=== PATIENT | female | born 1980 | race Caucasian/White ===

== ENCOUNTER 2023-02-22 00:17 | Day surgery (SDC) | payer OTHER, SELFPAY ==
[2023-02-18 09:21] VITALS: BMI 26.2
--- NOTE | 2023-02-18 09:24 | PC.NURSE ---
Report to the Outpatient Waiting Room, entrance under the green pavilion located off [facility], at time 0600 on date 02/22/23. Planned Procedure Time: 0730. Time changes happen often and if your time is changed the preop area will call you the afternoon before. - You and your visitor will be asked to self-screen and do not enter if you have any COVID symptoms. - A mask is optional within the hospital at this time. Patients may have clear liquids (water, carbonated beverages, clear teas, apple juice) until 3 hours prior to surgery with a maximum of 20 ounces. - No food from midnight until time of surgery Take the following medications with a SIP of water the morning of surgery: NONE DO NOT STOP ANY OF YOUR OTHER PRESCRIPTION MEDICATIONS PRIOR TO SURGERY ?EXCEPT THE FOLLOWING Medications to discontinue per physician: VITAMINS/SUPPLEMENTS Date to take last dose: 02/18/23 Please no make-up, nail welsh, hairspray, perfume, deodorant, or body powder the day of surgery. No jewelry (including any body piercings) or valuables the day of surgery, leave them at home. Please take a shower or bath the night before, or the morning of, surgery with an antibacterial soap. Wear comfortable, loose fitting clothing. - Jewelry must be removed prior to entering the operating room. Rings and piercings that are not removed may be cut off. - The hospital will not accept responsibility for valuables. - Please leave all valuables, including medications, at home the day of surgery. If you are going home after surgery, a licensed sales route driver must drive you home. - NO public transportation without another adult if you receive anesthesia. - We recommend that an adult stay with you for 24 hours following discharge. - We also recommend that you do not drive, make important decision, drink alcoholic beverages, or take any drugs that were not prescribed by your health care provider for at least 24 hours after your discharge time. Follow any additional instructions given to you from your surgeon. If you or anyone in your household have experienced Covid symptoms in the past week, please notify your surgeon or the nurse liaison at the phone number below for possible testing. Telephone instructions given to PT - KATHIE ROBERTS and asked if any additional questions and then verbalized understanding. Patient advised to call surgeon office or pre surgery nurse liaison [phone] if any additional questions.
[2023-02-22] VITALS (13 sets, daily range): BP systolic 98–123; BP diastolic 55–72; PULSE 65–86; RESP 12–20; TEMP 36.5–37.4; O2SAT 93–100
--- NOTE | 2023-02-22 06:08 | ECG_ITS ---
Measurements Intervals [place] Rate: 64 P: 15 WV: 169 QRS: 49 QRSD: 87 T: 25 QT: 410 QTc: 426 Interpretive Statements SINUS RHYTHM NORMAL ELECTROCARDIOGRAM NO PREVIOUS ECG AVAILABLE FOR COMPARISON Electronically Signed On 02-22-2023 14:43:58 CDT by Newton Severino M.D.
[2023-02-22] MEDS: LACTATED RINGERS 1,000 ML 30 ML IV CONT ×3 (06:30→15:40)
[2023-02-22 06:36] LABS: Urine Cotinine NEGATIVE
[2023-02-22 06:44] LABS: Hematocrit 42.3 % (37.0-47.0); Hemoglobin 13.8 g/dL (12.0-15.0)
--- NOTE | 2023-02-22 06:48 | WPDANESEPPF ---
Anes - Initial Pre Proc Eval Procedure: Operation Date: 02/22/23 07:30 Proposed Procedures p Abdominoplasty with Liposuction, - Dharmesh Momin MD s Bilateral Breast Augmentation - Dharmesh Momin MD s Bilateral Breast Mastopexy with GalaFlex - Dharmesh Momin MD s Liposuction of Bilateral Lateral Breasts - Dharmesh Momin MD Date/Time: 02/22/23 06:48 Surgeon: Dharmesh Momin MD Pre Op Diagnosis: skin laxity,micromastia,breast ptosis Patient Data Age: 43 Gender: F Height: 1.57 m Weight: 64.9 kg Allergies Allergy/AdvReac Type Severity Reaction Status Date / Time No Known Allergies Allergy Verified 02/18/23 09:19 Home Medications Medication Instructions Recorded Confirmed Type coQ10 (ubiquinol) 200 mg capsule 200 mg PO DAILY 02/18/23 02/22/23 History multivitamin 1 tablet PO DAILY 02/18/23 02/22/23 History rosuvastatin 10 mg tablet 10 mg PO HS 02/18/23 02/22/23 History trazodone 150 mg tablet 150 mg PO HS 02/18/23 02/22/23 History Laboratory Tests 02/22/23 02/22/23 06:10 06:29 Hgb 13.8 g/dL (12.0-15.0) Hct 42.3 % (37.0-47.0) Cotinine Negative Patient hx anesthesia problems: none Family hx anesthesia problems: none Results Review: All pre-operative results and documents have been reviewed as part of the pre-operative evaluation. [facility] Past Medical History Medical History (Updated 02/22/23 @ 06:48 by Tamir Ann DO) Hyperlipidemia Surgical History Surgical History (Updated 02/22/23 @ 06:48 by Tamir Ann DO) History of hysterectomy Social History Social History Smoking status: Never smoker Alcohol intake: current Drinks per week: 3 Substance use: never Substance use type: does not use Living arrangements: with family Spiritual care concerns: No Anes - Eval Final PreProcedure Day of Procedure 02/22/23 06:48 Patient weight: overweight Heart: regular rate and rhythm Lungs: clear to auscultation Airway: Mallampati scale class II Neurological: alert and oriented Last oral intake: >/= 8 hours ASA classification: II Emergent: no Anesthetic plan: proceed Anesthesia type and monitoring: general ETT and standard monitoring Results Review: All pre-operative results and documents have been reviewed as part of the pre-operative evaluation. Informed Consent: The patient's anesthetic plan and its attendant risks and benefits were discussed with the patient/family/POA. Questions were solicited and answers provided to the satisfaction of the patient/family/POA.
[2023-02-22] MEDS: SCOPOLAMINE 1.5 MG PATCH TRANSDERM (07:15)
--- NOTE | 2023-02-22 07:30 | WPDHPUPDATE1 ---
History and Physical Update Update Date/Time: 02/22/23 07:30 History and Physical has been reviewed, including an updated exam of the patient. There are NO changes in the patient's condition. Risks, benefits, and alternatives have been discussed and questions answered. Patient agrees to proceed with procedure.
--- NOTE | 2023-02-22 07:31 | W.PM.PROC2 ---
Procedure Note - Detailed Date of Procedure 02/22/23 Pre-op Diagnosis skin laxity,micromastia,breast ptosis Post-op Diagnosis Same Procedure Performed 1. Bilateral augmentation mastopexy with Galaflex 2. Bilateral breast suction lipectomy (superior / lateral breast / chest wall) 3. Progressive tension abdominoplasty with suction lipectomy. Surgeon Dharmesh Momin MD Anesthesia General Findings Bilateral Ale Dubon SoftTouch 520 cc Right - REF# SSM-520 SN [id number] Left - REF# SSM-520 SN [id number] Galalfex Ref# [id number] Lot# [id number] Lipoaspirate breast: 20 cc Tissue removed: 1216 grams Lipoaspirate abdomen: 1150 cc Description of Procedure They are here today for the above. Previously and again today the risks, benefits, alternatives were discussed in extensive detail. I wanted them to be very realistic about the risks involved as well as expectations. She understand her previous procedures increase her risk of complications which was outlined clearly. We discussed aftercare and what to monitor for. I was very upfront about the risks of wound breakdown leading to loss of skin, open wounds, and need for additional procedures with permanent abdominal deformity. We discussed DVT/PE risks and management. Made sure answered all of their questions to their satisfaction today and consent was obtained. They were marked in the preoperative holding area with their verification. The patient was taken to the operating room and Anesthesia was provided by anesthesiology. A Cary catheter was started. Placed prone with care taken to protect from injury and they were prepped and draped in a standard sterile fashion. A surgical time-out was taken. Back / flanks Stab incisions were made and tumescent solution infiltrated. Once adequate time was allowed for hemostasis a 5mm basket cannula was utilized to complete suction lipectomy based on S.A.F.E. technique in multiple planes and passes. Suction lipectomy continued to result based on pre-operative planning, intra-operative observation, and rolling pinch test which were in full agreement. Breast She was then placed supine with care taken to protect from injury. Re-prepped and draped in a standard sterile fashion. 1% lidocaine and 0.25% Marcaine with epinephrine was used anesthetize as a field block. Tegaderm nipple [place] were placed. A 15 blade used to make an incision just superior to the inframammary fold leaving a cusp of de-epithelized tissue at the t junction. Dissection was continued until the chest wall as identified. I incised the pectoralis major along its inferior border and completely released the inferior border leaving the medial border intact. I created a subpectoral pocket in the appropriate dimensions based on our preoperative planning for the implant. I then copiously irrigated with saline solution and verified a strict hemostasis. Next the use a triple antibiotic and Betadine containing solution to irrigate the pocket. I washed my gloves with the triple antibiotic and Betadine solution. We washed the implant immediately upon opening it with this solution and only opened it when we needed it. I used implant funnel and no-touch technique. The implant was introduced into the pocket using the funnel. Having verified positioning of the implant this was closed using 2-0 PDS. I tailor tacked the breast into position. Placed her in a sitting position. Verified the nipple-areolar location based on preoperative planning as well as intraoperative observations and measurements in full agreement. Suction lipectomy with a 3mm multihole cannula was utilized for the liposuction with care taken to protect the implant with no evidence of injury to the implant or other structures. She was placed supine. I de-epithelialized the pedicle. I then removed the inferior central portion of the breast need making sure the implant was well protected. I elevated medial and lateral ti
[2023-02-22] MEDS: ceFAZolin 2 GM/D5W 50 ML 2 GM/50 ML BAG IVPB (07:39)
[2023-02-22] MEDS: TRANEXAMIC ACID 1,000MG/ISO100 1,000 MG/100 ML BAG 200 MG IVPB (07:54)
[2023-02-22] MEDS: NACL 0.9% IRRIG POUR BOTTLE 900 ML, GENTAMICIN SULFATE INJ 160 MG, ceFAZolin 2 GM, POVI... IRRIGATION (09:30)
[2023-02-22] MEDS: BUPIVACAINE/EPINEPHRINE 0.5% 30 ML VIAL 60 ML INFILTRATE (09:50)
[2023-02-22] MEDS: LIDO 1%/EPINEPHRINE 1:100,000 20 ML VIAL 40 ML INFILTRATE (09:50)
[2023-02-22] MEDS: BUPivacaine HCL 0.25% PF 30 ML VIAL INFILTRATE (09:50)
[2023-02-22] MEDS: ceFAZolin SODIUM 1 GM VIAL IV PUSH (12:57)
[2023-02-22] MEDS: LACTATED RINGERS IRRIG 1,000 ML, LIDOCAINE HCL 1% LOCAL INJ 50 ML, EPINEPHrine HCL INJ ... INFILTRATE (12:58)
[2023-02-22] MEDS: fentaNYL CITRATE INJ (*CRX) 100 MCG/2 ML VIAL 25 MCG IV PUSH ×5 (14:51→15:38)
[2023-02-22] MEDS: ONDANSETRON INJ 4 MG/2 ML VIAL IV PUSH ×2 (15:07→17:38)
[2023-02-22] MEDS: diphenhydrAMINE HCl INJ 50 MG/ML VIAL 25 MG IV PUSH (15:36)
--- NOTE | 2023-02-22 15:40 | SUR.PHASEI ---
MD Momin notified of small amount of drainage around drain insertion site (RLQ). New orders to add xerform gauze and replace dressing. Cyndi (scrub RN) at bedside to do so. New dressing clean dry and intact.
--- NOTE | 2023-02-22 16:37 | PC.NURSE ---
This patient, Natalee Ulloa, was received from PACU via bed on 02/22/23 at 1637. Patient/family oriented to unit policies and routines.
[2023-02-22] MEDS: MORPHINE SULFATE (*CRX) 2 MG/ML INJ IV PUSH (17:09)
[2023-02-22] MEDS: LACTATED RINGERS 1,000 ML 125 ML IV CONT (17:10)
[2023-02-22] MEDS: KETOROLAC 10 MG TABLET PO (18:23)
[2023-02-22] MEDS: carisoprodoL (*CRX) 350 MG TABLET PO (19:18)
[2023-02-22] MEDS: ENOXAPARIN 40 MG/0.4 ML SYRINGE SUB-Q (19:19)
[2023-02-22] MEDS: DOCUSATE SODIUM 100 MG CAPSULE PO (19:19)
[2023-02-22] MEDS: diazePAM (*CRX) 5 MG TABLET PO (19:20)
[2023-02-23] MEDS: oxyCODONE/ACETAMINOPHEN (*CRX) 5-325 MG TABLET PO ×2 (00:20→06:55)
[2023-02-23] MEDS: carisoprodoL (*CRX) 350 MG TABLET PO ×2 (03:09→09:27)
[2023-02-23] MEDS: KETOROLAC 10 MG TABLET PO ×2 (03:09→09:30)
[2023-02-23 05:00] VITALS: BP 101/52; PULSE 88; RESP 16; TEMP 37.5; O2SAT 97
[2023-02-23 06:55] VITALS: BP 115/76; PULSE 66; RESP 16; TEMP 36.4; O2SAT 100
--- NOTE | 2023-02-23 07:19 | WPDPN ---
Progress Note: A&P Assessment and Plan (1) Breast ptosis: Code(s): N64.81 - Ptosis of breast Status: Acute Assessment and Plan: Doing well after bilateral augmentation mastopexy with lateral breast/chest was suction lipectomy and progressive tension abdominoplasty with suction lipectomy. Will discharge home. Follow-up in 1 week. Today we had a lengthy discussion about the care. What to monitor for. Activity limitations. This was a lengthy open ended conversation answering all her questions. She knows what is an emergency and when to proceed to ER/dial 911. Call with all other questions or concerns. Will see her back. (2) Micromastia: Code(s): N64.82 - Hypoplasia of breast Status: Acute (3) Skin laxity: Code(s): L57.4 - Cutis laxa senilis Status: Acute (4) Localized adiposity: Code(s): E65 - Localized adiposity Status: Acute Subjective Date/time seen: 02/23/23 07:19 Interval history: Doing well after bilateral augmentation mastopexy with lateral breast/chest was suction lipectomy and progressive tension abdominoplasty with suction lipectomy. Ambulating. Pain controlled. No nausea / vomiting. No fevers / chills. No shortness of breast. No chest pain. No calf tenderness. Review of Systems Review of Systems: All systems reviewed & are unremarkable except as noted in HPI and below Exam Narrative: Alert & Oriented NOD Respiratory unlabored Breast is healing well. No signs of infection. No hematoma. No seroma. Good color and capillary refill. Abdomen is healing well. No signs of infection. No hematoma. No seroma. Good color and capillary refill. No calf tenderness. Negative Bryan's Objective Data Vital Signs Vital Signs: Vital Signs - 24 hr 02/22/23 14:37 02/22/23 14:45 02/22/23 14:50 Temperature 36.7 C Pulse Rate 80 75 Respiratory Rate 13 13 Blood Pressure 115/62 111/62 Pulse Oximetry 100 100 95 Oxygen Delivery Simple Face Mask Simple Face Mask Room Air Oxygen Flow Rate 10 10 02/22/23 15:00 02/22/23 15:15 02/22/23 15:30 Temperature Pulse Rate 77 72 80 Respiratory Rate 17 12 13 Blood Pressure 112/59 L 118/65 120/67 Pulse Oximetry 94 93 93 Oxygen Delivery Room Air Room Air Room Air Oxygen Flow Rate 02/22/23 15:45 02/22/23 16:00 02/22/23 16:15 Temperature Pulse Rate 77 86 84 Respiratory Rate 12 20 16 Blood Pressure 112/63 114/72 120/67 Pulse Oximetry 94 98 97 Oxygen Delivery Room Air Room Air Room Air Oxygen Flow Rate 02/22/23 16:28 02/22/23 16:45 02/22/23 19:30 Temperature 36.5 C 36.7 C Pulse Rate 82 78 82 Respiratory Rate 18 18 16 Blood Pressure 123/56 L 118/71 98/55 L Pulse Oximetry 95 94 97 Oxygen Delivery Room Air Oxygen Flow Rate 02/23/23 05:00 Temperature 37.5 C Pulse Rate 88 Respiratory Rate 16 Blood Pressure 101/52 L Pulse Oximetry 97 Oxygen Delivery Oxygen Flow Rate Intake/Output Intake/Output: Intake & Output 02/20/23 02/21/23 02/22/23 02/23/23 23:59 23:59 23:59 23:59 Intake Total 1450 2700 Output Total 540 1875 Balance 910 825 Meds/Results Medications: Active Medications Generic Name Dose Route Start Last Admin Trade Name Freq PRN Reason Stop Dose Admin Carisoprodol 350 mg 02/22/23 18:00 02/23/23 03:09 Carisoprodol (*Crx) 350 Mg Tablet PO 350 mg Q6HR HOMERO Administration Diazepam 5 mg 02/22/23 14:23 02/22/23 19:20 Diazepam (*Crx) 5 Mg Tablet PO 5 mg TID PRN Administration Anxiety Docusate Sodium 100 mg 02/22/23 21:00 02/22/23 19:19 Docusate Sodium 100 Mg Capsule PO 100 mg Q12HR HOMERO Administration Enoxaparin Sodium 40 mg 02/22/23 20:00 02/22/23 19:19 Enoxaparin 40 Mg/0.4 Ml Syringe SUB-Q 40 mg DAILY HOMERO Administration Ketorolac Tromethamine 10 mg 02/22/23 18:00 02/23/23 03:09 Ketorolac 10 Mg Tablet PO 02/24/23 12:01 10 mg Q6HR HOMERO Administration Morphine Sulfate 2 mg
--- NOTE | 2023-02-23 07:23 | P.DS_ITS ---
DS: Admitting Diagnosis Discharge Date 02/23/2023 Admitting Diagnosis 1. Breast ptosis 2. Micromastia 3. Skin laxity 4. Localized adiposity DS: Discharge Diagnosis Discharge Diagnosis (1) Breast ptosis: Code(s): N64.81 - Ptosis of breast Status: Acute (2) Micromastia: Code(s): N64.82 - Hypoplasia of breast Status: Acute (3) Skin laxity: Code(s): L57.4 - Cutis laxa senilis Status: Acute (4) Localized adiposity: Code(s): E65 - Localized adiposity Status: Acute DS: Summary Hospital Course Hospital Course: She underwent bilateral augmentation mastopexy with lateral breast/chest was suction lipectomy and progressive tension abdominoplasty with suction lipectomy. Postoperatively has done well. Will discharge home. Time Spent with Patient Time attestation: Total time spent providing and/or coordinating discharge services: Exam Narrative: Alert & Oriented NOD Respiratory unlabored Breast is healing well. No signs of infection. No hematoma. No seroma. Good color and capillary refill. Abdomen is healing well. No signs of infection. No hematoma. No seroma. Good color and capillary refill. No calf tenderness. Negative Bryan's Discharge Plan Discharge Patient Disposition: Home, Self-Care Discharge Instructions: POST OPERATIVE DISCHARGE INSTRUCTIONS DHARMESH MOMIN M.D. [facility] [address] [place] [address] * No driving for 24 hours after anesthesia and while you are taking pain medication. * Take all prescribed medication as directed * Diet as tolerated. * No lifting or activity that raises blood pressure for 48 hours. * Regular walking / ambulation. * May shower 24 hours after surgery. Once you shower do not take pain medic ation before showering as the combination of medication and heat may cause you to feel dizzy or pass out. * No pools or tubs for 2 weeks. * Slowly stand up straight as tolerated. * No straining or lifting more than 20 pounds. * If no bowel movement within 24 hours may use laxative. * Call with any questions or concerns. * Dressing Care: Continue abdominal binder / foam 23 hours per day. Continue surgical bra 23 hours per day. If you have any questions or concerns, please call the office . If it is after hours you will be directed to the home security professional exchange. Shortness of breath, chest pain, or other medical emergency dial 911 / proceed to the Emergency Room. Stand Alone Forms: General Discharge Instructions Follow-up/Referrals: Dharmesh Momin MD [Physician] - 1 Week Discharge Medications: Continued multivitamin Tablet 1 tablet PO DAILY rosuvastatin 10 mg tablet 10 mg PO HS Patient Comments: EVERY OTHER EVENING coQ10 (ubiquinol) 200 mg Capsule 200 mg PO DAILY Discontinued trazodone 150 mg tablet 150 mg PO HS
[2023-02-23] MEDS: DOCUSATE SODIUM 100 MG CAPSULE PO (09:26)
[2023-02-23] MEDS: ENOXAPARIN 40 MG/0.4 ML SYRINGE SUB-Q (09:32)
== END 2023-02-23 10:11 | disposition home or self-care (01) ==
LOC: ANHSURGERY 05:52 → ANHOB2 16:35
PROVIDERS: Anesthesiology; Visit Provider Surgery Plastic and Reconstructive Surgery
PROC: (CPT 19325; principal; 2023-02-22 07:30)
PROC: (CPT 19325; 2023-02-22 07:30)
PROC: (CPT 19316; 2023-02-22 07:30)
PROC: (CPT 15877; 2023-02-22 07:30)
DX: Z41.1 Encounter for cosmetic surgery (principal); N64.81 Ptosis of breast; N64.82 Hypoplasia of breast; L57.4 Cutis laxa senilis; E65 Localized adiposity; E78.5 Hyperlipidemia, unspecified; Z79.899 Other long term (current) drug therapy
CPT/HCPCS: 19325; 19316; 15777 ×2; 15877; 15830; 15847; 80307; 85014; 85018; 93005; 99199; A9270; J0171; J0690; J1100; J1170; J1200; J1580; J1650; J2250; J2270; J2405; J2704; J3010; J7120

== ENCOUNTER 2023-07-04 00:52 | Day surgery (SDC) | payer OTHER, SELFPAY ==
[2023-06-20 15:33] VITALS: BMI 26.2
--- NOTE | 2023-06-20 15:37 | PC.NURSE ---
Report to the Outpatient Waiting Room, entrance under the green pavilion located off [facility], at time 0600 on date 07/04/23. Planned Procedure Time: 0730. Time changes happen often and if your time is changed the preop area will call you the afternoon before. - You and your visitor will be asked to self-screen and do not enter if you have any COVID symptoms. - A mask is optional within the hospital at this time. Patients may have clear liquids (water, carbonated beverages, clear teas, apple juice) until 3 hours prior to surgery with a maximum of 20 ounces. - No food from midnight until time of surgery Take the following medications with a SIP of water the morning of surgery: DOXYCYCLINE, VALACYCLOVIR DO NOT STOP ANY OF YOUR OTHER PRESCRIPTION MEDICATIONS PRIOR TO SURGERY ?EXCEPT THE FOLLOWING Medications to discontinue per physician: VITAMINS/SUPPLEMENTS Date to take last dose: 06/30/23 Please no make-up, nail portuguese, hairspray, perfume, deodorant, or body powder the day of surgery. No jewelry (including any body piercings) or valuables the day of surgery, leave them at home. Please take a shower or bath the night before, or the morning of, surgery with an antibacterial soap. Wear comfortable, loose fitting clothing. - Jewelry must be removed prior to entering the operating room. Rings and piercings that are not removed may be cut off. - The hospital will not accept responsibility for valuables. - Please leave all valuables, including medications, at home the day of surgery. If you are going home after surgery, a licensed bulk truck driver must drive you home. - NO public transportation without another adult if you receive anesthesia. - We recommend that an adult stay with you for 24 hours following discharge. - We also recommend that you do not drive, make important decision, drink alcoholic beverages, or take any drugs that were not prescribed by your health care provider for at least 24 hours after your discharge time. Follow any additional instructions given to you from your surgeon. If you or anyone in your household have experienced Covid symptoms in the past week, please notify your surgeon or the nurse liaison at the phone number below for possible testing. Telephone instructions given to PT - KATHIE ROBERTS and asked if any additional questions and then verbalized understanding. Patient advised to call surgeon office or pre surgery nurse liaison [phone] if any additional questions.
[2023-07-04] VITALS (8 sets, daily range): BP systolic 104–119; BP diastolic 62–89; PULSE 64–88; RESP 12–17; TEMP 36.3–37.3; O2SAT 97–100
[2023-07-04] MEDS: LACTATED RINGERS 1,000 ML 30 ML IV CONT (06:40)
--- NOTE | 2023-07-04 07:05 | WPDHPUPDATE1 ---
History and Physical Update Update Date/Time: 07/04/23 07:05 History and Physical has been reviewed, including an updated exam of the patient. There are NO changes in the patient's condition. Risks, benefits, and alternatives have been discussed and questions answered. Patient agrees to proceed with procedure.
--- NOTE | 2023-07-04 07:05 | W.PM.PROC2 ---
Procedure Note - Detailed Date of Procedure 07/04/23 Pre-op Diagnosis breast asymmetry Post-op Diagnosis Same Procedure Performed Left breast implant exchange Surgeon Dharmesh Momin MD Anesthesia General Findings Previous implant: Left - SSM-520 smooth intact New implant: Left SSM-640 [id number] Description of Procedure Preoperatively the risks, benefits, alternatives were discussed in extensive detail. I wanted to be very realistic about the risks involved as well as expectations. She understands that she will never have an exact match. I was clear about how we could actually make her worse. Answered all questions to satisfaction. Voiced a clear understanding. Consent obtained. She was taken the operating room placed supine on the operating room table. Anesthesia provided by anesthesiology and prepped and draped in a standard sterile fashion. Surgical time-out was taken. 1% lidocaine and 0.25% Marcaine with epinephrine was used to provide a field block. Tegaderm nipple cramer were placed bilateral. Fifteen blade used to excise the previous left IMF scar. Dissection was continued down until the capsule was identified and opened. superior / lateral capsulotomy completed. Implant removed. Copiously irrigated with more than 1 liter of saline. Verified strict hemostasis. Multiple sizers were utilized to determine final size. This was supine as well as sitting from various angles to verify size match. I then irrigated with Betadine containing solution. Using a no-touch technique and a Walters funnel the implant was introduced into the pocket. This was closed with 2-0 PDS followed by 3-0 Monocryl and a running subcuticular 4-0 Monocryl followed by tissue glue. Dressings were placed. She was woken taken to the PACU without difficulty. All instrument sponge counts were correct at the end of the case. Estimated Blood Loss 10 Drains No Packing No Pathology None sent Complications No immediate complications Condition Stable Disposition PACU
--- NOTE | 2023-07-04 07:17 | P.PNAN_ITS ---
Anes - Initial Pre Proc Eval Procedure: Operation Date: 07/04/23 07:30 Proposed Procedures p Left Breast Implant Exchange - Dharmesh Momin MD Date/Time: 07/04/23 07:17 Surgeon: Dharmesh Momin MD Pre Op Diagnosis: breast asymmetry Patient Data Age: 43 Gender: F Height: 1.57 m Weight: 66.1 kg Last Vital Signs Temp 99.2 F 07/04/23 06:30 Pulse 64 07/04/23 06:30 Resp 16 07/04/23 06:30 BP 104/62 07/04/23 06:30 Pulse Ox 100 07/04/23 06:30 O2 Del Method Room Air 07/04/23 06:30 Allergies Allergy/AdvReac Type Severity Reaction Status Date / Time No Known Allergies Allergy Verified 07/04/23 06:05 Home Medications Medication Instructions Recorded Confirmed Type coQ10 (ubiquinol) 200 mg capsule 200 mg PO DAILY 02/18/23 07/04/23 History multivitamin 1 tablet PO DAILY 02/18/23 07/04/23 History rosuvastatin 10 mg tablet 10 mg PO HS 02/18/23 07/04/23 History bisacodyl 5 mg tablet,delayed 5 mg PO HS 06/20/23 07/04/23 History release (Dulcolax (bisacodyl)) docusate sodium 100 mg capsule 100 mg PO DAILY 06/20/23 07/04/23 History (Colace) doxycycline hyclate 100 mg tablet 100 mg PO BID 06/20/23 07/04/23 History sennosides 8.6 mg-docusate sodium 1 tab-cap PO HS 06/20/23 07/04/23 History 50 mg tablet (Senna Plus) valacyclovir 1 gram tablet 1,000 mg PO DAILY PRN Cold Sores 06/20/23 07/04/23 History Patient hx anesthesia problems: none Family hx anesthesia problems: none Results Review: All pre-operative results and documents have been reviewed as part of the pre-operative evaluation. [facility] [place] Past Medical History Medical History (Updated 02/23/23 @ 07:21 by Dharmesh Momin MD) Hyperlipidemia Surgical History Surgical History (Updated 02/22/23 @ 06:48 by Tamir Ann DO) History of hysterectomy Social History Social History Smoking status: Never smoker Alcohol intake: current Drinks per week: 3 Substance use: never Substance use type: does not use Living arrangements: with family Spiritual care concerns: No Anes - Eval Final PreProcedure Day of Procedure 07/04/23 07:17 Patient weight: normal Heart: regular rate and rhythm Lungs: clear to auscultation Airway: Mallampati scale class II Neurological: alert and oriented Last oral intake: >/= 8 hours ASA classification: II Emergent: no Anesthetic plan: proceed Anesthesia type and monitoring: general LMA and ETT and standard monitoring Results Review: All pre-operative results and documents have been reviewed as part of the pre- operative evaluation. Informed Consent: The patient's anesthetic plan and its attendant risks and benefits were discussed with the patient/family/POA. Questions were solicited and answers p rovided to the satisfaction of the patient/family/POA.
[2023-07-04] MEDS: NACL 0.9% IRRIG POUR BOTTLE 900 ML, GENTAMICIN SULFATE INJ 160 MG, ceFAZolin 2 GM, POVI... IRRIGATION (07:30)
[2023-07-04] MEDS: BUPivacaine HCL 0.25% PF 30 ML VIAL INFILTRATE (07:30)
[2023-07-04] MEDS: ceFAZolin 2 GM/D5W 50 ML 2 GM/50 ML BAG IVPB (07:30)
[2023-07-04] MEDS: TRANEXAMIC ACID 1,000MG/ISO100 1,000 MG/100 ML BAG 200 MG IVPB (07:45)
[2023-07-04] MEDS: LIDO 1%/EPINEPHRINE 1:100,000 50 ML VIAL 20 ML INFILTRATE (08:24)
[2023-07-04] MEDS: fentaNYL CITRATE INJ (*CRX) 100 MCG/2 ML VIAL 25 MCG IV PUSH ×2 (08:50→08:53)
[2023-07-04] MEDS: oxyCODONE HCL (*CRX) 5 MG TAB IR PO (09:46)
== END 2023-07-04 10:10 | disposition home or self-care (01) ==
PROVIDERS: Visit Provider Surgery Plastic and Reconstructive Surgery
PROC: (CPT 19371; principal; 2023-07-04 07:30)
DX: Z41.1 Encounter for cosmetic surgery (principal); N64.89 Other specified disorders of breast; E78.5 Hyperlipidemia, unspecified
CPT/HCPCS: 19371; 19325; A9270; J0690; J1100; J1580; J2250; J2405; J2704; J3010; J7120